=== PATIENT | female | born 1945 | race Caucasian/White ===

== ENCOUNTER 2017-01-27 18:29 | Observation (INO) | payer MEDICARE, SELFPAY ==
[~2017-01-27] VITALS: Ht 152.4 cm; Wt 75.4 kg
[~2017-01-27 18:29] MED LIST: ALBUTEROL2.5 MG/3 M INH; ASPIRIN81 MG PO; ATIVAN1 MG PO; CARDIZEM CD240 MG PO; CETIRIZINE HCL10 MG PO; CLONAZEPAM1 MG PO; COLACE100 MG PO; FEOSOL325 MG PO; FOLIC ACID1 MG PO; FUROSEMIDE40 MG PO; HYDROCODON-ACE1 EAC2 PO; HYDROCODON-ACE1 EAC4 PO; LEVAQUIN500 MG PO; LEVOFLOXACIN750 MG PO; PANTOPRAZOLE SO40 MG PO; PRAVASTATIN SOD40 MG PO; PROMETHAZINE HC25 M1 PO; SYMBICORT 16010.2 GM INH
[2017-01-27 19:09] LABS: ARTERIAL BLD GAS O2 SATURATION 96.2 % (94-98); ARTERIAL BLOOD GAS HCO3 26.7 mmol/L (22-26); ARTERIAL BLOOD GAS PCO2 45.2 mmHg (32-45); ARTERIAL BLOOD GAS pH 7.39 (7.35-7.45)
[2017-01-27 19:22] LABS: BASO # 0.1 10_X3_uL (0.0-0.1); BASO % 0.4 % (0.1-1.2); EOS # 1.4 10_X3_uL (0.0-0.4); EOS % 12.2 % (0.7-5.8); GRAN % 61.8 % (34.0-71.1); HEMATOCRIT 36.9 % (34-45); HEMOGLOBIN 11.3 g/dL (11.2-15.7); LYMPH # 2.1 10_X3_uL (1.2-3.7); LYMPH % 18.8 % (19.3-51.7); MEAN CORPUSCULAR HEMOGLOBIN 30.4 pg (27.0-33.0); MEAN CORPUSCULAR HGB CONC 30.6 g/dL (32.0-36.0); MEAN CORPUSCULAR VOLUME 99.2 fL (79-95); MEAN PLATELET VOLUME 10.1 fl (7.5-11.5); MONO # 0.8 10_X3_uL (0.2-0.9); MONO % 6.8 % (4.7-12.5); PLATELET COUNT 243 x10_3/uL (182-369); RED BLOOD COUNT 3.72 x10_6/uL (3.9-5.2); RED CELL DISTRIBUTION WIDTH 14.7 % (11.7-14.4); WHITE BLOOD COUNT 11.3 x10_3/uL (4.0-10.0)
[2017-01-27 19:42] LABS: ALBUMIN 4.1 gm/dL (3.4-5.0); ALKALINE PHOSPHATASE 84 U/L (50-136); ALT/SGPT 10 U/L (3.5-33.9); AST/SGOT 18 U/L (7.04-26.96); BILIRUBIN,TOTAL 0.16 mg/dL (0.0-1.0); BLOOD UREA NITROGEN 24 mg/dL (7-18); CALCIUM 9.1 mg/dL (8.7-10.7); CARBON DIOXIDE 24 mmol/L (21-32); CREATINE KINASE 75 U/L (21-215); CREATININE 0.7 mg/dL (0.6-1.3); GLUCOSE,RANDOM 118 mg/dL (70-99); SODIUM 134 mmol/L (136-145); TOTAL PROTEIN 7.6 gm/dL (6.4-8.2)
[2017-01-27 19:45] LABS: POTASSIUM 4.8 mmol/L (3.5-5.1)
[2017-01-28 06:44] LABS: BLOOD UREA NITROGEN 19 mg/dL (7-18); CALCIUM 8.3 mg/dL (8.7-10.7); CARBON DIOXIDE 25 mmol/L (21-32); CREATININE 0.6 mg/dL (0.6-1.3); GLUCOSE,RANDOM 90 mg/dL (70-99); POTASSIUM 4.7 mmol/L (3.5-5.1); SODIUM 136 mmol/L (136-145)
[2017-01-28 07:20] LABS: BASO % 0.3 % (0.1-1.2); EOS % 11.1 % (0.7-5.8); GRAN # 5.3 10_X3_uL (1.6-6.1); GRAN % 59.6 % (34.0-71.1); HEMATOCRIT 32.1 % (34-45); HEMOGLOBIN 9.6 g/dL (11.2-15.7); LYMPH % 22.1 % (19.3-51.7); MEAN CORPUSCULAR HEMOGLOBIN 29.6 pg (27.0-33.0); MEAN CORPUSCULAR HGB CONC 29.9 g/dL (32.0-36.0); MEAN CORPUSCULAR VOLUME 99.1 fL (79-95); MEAN PLATELET VOLUME 10.4 fl (7.5-11.5); MONO # 0.6 10_X3_uL (0.2-0.9); MONO % 6.9 % (4.7-12.5); PLATELET COUNT 166 x10_3/uL (182-369); RED BLOOD COUNT 3.24 x10_6/uL (3.9-5.2); RED CELL DISTRIBUTION WIDTH 14.6 % (11.7-14.4); WHITE BLOOD COUNT 8.8 x10_3/uL (4.0-10.0)
[2017-01-28 10:38] LABS: CKMB 1.5 ng/ml (0.0-5.0)
[2017-01-28 10:43] LABS: TROP-I < 0.30 NG/ML (0.00-0.30)
== END 2017-01-28 11:00 | disposition home or self-care (01) ==
LOC: ER 18:29 → MS 20:40 → UNDODEPER 01-29 11:46
PROVIDERS: General Practice; ADMIT Family Medicine
DX: J44.0 Chronic obstructive pulmonary disease with (acute) lower respiratory infection (principal); J20.9 Acute bronchitis, unspecified; J44.1 Chronic obstructive pulmonary disease with (acute) exacerbation; R07.9 Chest pain, unspecified; I10 Essential (primary) hypertension; I73.9 Peripheral vascular disease, unspecified; R60.0 Localized edema; Z83.3 Family history of diabetes mellitus; Z80.9 Family history of malignant neoplasm, unspecified; Z82.49 Family history of ischemic heart disease and other diseases of the circulatory system; Z98.51 Tubal ligation status; Z88.8 Allergy status to other drugs, medicaments and biological substances; Z79.82 Long term (current) use of aspirin; Z79.899 Other long term (current) drug therapy; Z79.891 Long term (current) use of opiate analgesic
CPT/HCPCS: 36415; 36600; 71010; 80048; 80053; 82550; 82553; 82803; 83605; 83880; 85025; 86738; 87040; 87400; 87449; 93005; 94640; 94664; 96365; 96375; 99070; 99284; 99285-25; G0378